=== PATIENT | female | born 1935 | race Caucasian/White ===

== ENCOUNTER 2018-03-03 21:18 | Inpatient (IN) | payer MEDICARE, OTHER ==
--- NOTE | 2018-03-03 22:39 | ED ---
Lower Extremity Injury HPI - General Chief Complaint: Extremity Injury, Lower Stated Complaint: Leg Injury Time Seen by Provider: 03/03/18 21:23 Source: patient, EMS Mode of arrival: EMS Limitations: no limitations - History of Present Illness Initial Comments: Years old female transferred here from [facility], she has a history of dementia and lives in a intermediate, according to the family she fell in intermediate called the family this morning that she is having a hard time bearing weight local x-ray was done, it showed hip fracture then she was transferred to [facility] and [facility] they didn't quite extensive workup head CT cervical spine CT hip x-rays labs troponin EKG also sings were unremarkable except the left hip fracture, patient had the morphine she was hard to hard to arouse but she did she did wake up confused pleasant then she fell asleep no review of system is available from the patient - Related Data Home Medications Medication Instructions Recorded Confirmed ALPRAZolam [Xanax] 0.5 mg PO TID@0900,1300,209903/03/18 03/03/18 Acetaminophen [Tylenol Extra 500 mg PO TID@0900,1300,209903/03/18 03/03/18 Strength] Aspirin [Adult Low Dose Aspirin EC] 81 mg PO DAILY@89903/03/18 03/03/18 Atorvastatin [Lipitor] 40 mg PO HS@209903/03/18 03/03/18 Bisacodyl [Dulcolax] 10 mg PO DAILY PRN 03/03/18 03/03/18 Bisacodyl [Dulcolax] 10 mg RECTAL DAILY PRN 03/03/18 03/03/18 Lisinopril [Prinivil] 10 mg PO DAILY@0900 03/03/18 03/03/18 Magnesium Hydroxide [Milk of 2,400 mg PO DAILY PRN 03/03/18 03/03/18 Magnesia] Magnesium Hydroxide [Milk of 400 mg PO HS@209903/03/18 03/03/18 Magnesia] Meclizine [Antivert] 12.5 mg PO Q8HR PRN 03/03/18 03/03/18 Mirtazapine 7.5 mg PO HS@209903/03/18 03/03/18 Sennosides-Docusate Sodium 2 tab PO BID@0900,2100 03/03/18 03/03/18 [Senokot-S] Sertraline [Zoloft] 50 mg PO DAILY@0900 03/03/18 03/03/18 Allergies Allergy/AdvReac Type Severity Reaction Status Date / Time Sulfa (Sulfonamide Allergy Rash/Hives Verified 03/03/18 21:37 Antibiotics) Review of Systems ROS Statement: Those systems with pertinent positive or pertinent negative responses have been documented in the HPI. ROS Other: All systems not noted in ROS Statement are negative. Past Medical History History of Any Multi-Drug Resistant Organisms: None Reported Past Psychological History: No Psychological Hx Reported Smoking Status: Former smoker Past Alcohol Use History: None Reported Past Drug Use History: None Reported General Exam - General Exam Comments Initial Comments: General: The patient is asleep on arrival to the ER, she had the morphine prior to her arrival in our ER, she looks thin and pale and dehydrated Skin: Skin is warm and dry and no rashes or lesions are noted. Eye: Pupils are equal, round and reactive to light, extra-ocular movements are intact; there is normal conjunctiva bilaterally. Ears, nose, mouth and throat: mucus membranes are dry, Neck: No obvious injury noticed to the neck. Cardiovascular: There is a regular rate and rhythm. No murmur, rub or gallop is appreciated. Respiratory: To auscultation bilateral, no wheezing no rhonchi no distress respiratory purvis noticed Gastrointestinal: Soft, non-distended, non-tender abdomen without masses or organomegaly noted. There is no rebound or guarding present. Bowel sounds are unremarkable. Back: There is no tenderness to palpation in the midline. There is no obvious deformity. Musculoskeletal: Normal pulses on the left lower extremity are palpable palpable she is able to wiggle her toes. Neurological: CN II-XII intact, Cranial nerves III through XII are intact. There are no obvious motor or sensory deficits. Coordination appears grossly intact. Speech is normal. Psychiatric: Cooperative, pleasant, confused Limitations: no limitations Course Vital Signs 03/03/18 03/03/18 21:19 23:34 Temperature 97.5 F L 97.1 F L Pulse Rate 92 72 Respiratory 16 16 Rate Blood Pressure 112/71 150/72 O2 Sat by Pulse 95 98 Oximetry Her labs were reviewed from [facility] his metabolic panel, troponin, EKG , head CT, urinalysis, CBC was unremarkable and he also did the cervical spine CT which is unremarkable left hip fracture was confirmed with a chest x-ray she be admitted to Dr. Lois De Leon, neck covering Dr. Lois De Leon he returned he paged and he agreed with that we'll consult Dr. Gonzales medical coverage him a he spoke to Dr. Gonzales and gave him the information about the patient Disposition Clinical Impression: Hip fracture, left Disposition: ADMITTED IP TO THIS HOSP Condition: Good Referrals: Isaías Tenorio MD [Primary Care Provider] - 1-2 days
[2018-03-03] MEDS ORDERED: NALOXONE 0.4 MG/ML 1 ML VIAL IV PRN (23:44)
[2018-03-03] MEDS ORDERED: ONDANSETRON 4 MG/2 ML VIAL IVP PRN (23:52)
[2018-03-03] MEDS ORDERED: MORPHINE SULFATE 4 MG/ML SYRINGE IV PRN (23:52)
[2018-03-03] MEDS ORDERED: MAGNESIUM HYDROXIDE 2,400 MG/10 ML CUP PO PRN (23:56)
[2018-03-04 00:27] LABS: Glucose,Whole Blood 135 mg/dL (75-99)
[2018-03-04] MEDS ORDERED: SODIUM CHLORIDE 0.9% 1,000 ML IV SCH (00:30)
[2018-03-04 00:41] LABS: Basophils % (A) 0 %; Eosinophils % (A) 0 %; HCT 38.2 % (34.0-46.0); HGB 11.9 gm/dL (11.4-16.0); Hypochromasia Slight; Lymphocytes # (A) 1.1 k/uL (1.0-4.8); Lymphocytes % (A) 6 %; MCH 30.4 pg (25.0-35.0); MCHC 31.3 g/dL (31.0-37.0); MCV 97.1 fL (80.0-100.0); Mean Platelet Volume 8.2; Monocytes # (A) 1.2 k/uL (0-1.0); Monocytes % (A) 6 %; Neutrophils # (A) 17.5 k/uL (1.3-7.7); Neutrophils % (A) 88 %; Platelet Count 258 k/uL (150-450); RBC 3.93 m/uL (3.80-5.40); RDW 14.9 % (11.5-15.5); WBC 19.9 k/uL (3.8-10.6)
[2018-03-04 00:49] LABS: ALT 33 U/L (9-52); AST 29 U/L (14-36); Albumin 4.2 g/dL (3.5-5.0); Alkaline Phosphatase 77 U/L (38-126); Anion Gap 15 mmol/L; Blood Urea Nitrogen 15 mg/dL (7-17); Calcium 9.6 mg/dL (8.4-10.2); Carbon Dioxide 26 mmol/L (22-30); Chloride 102 mmol/L (98-107); Glucose 138 mg/dL (74-99); INR 1.1 (<1.2); Potassium 4.6 mmol/L (3.5-5.1); Prothrombin Time 10.7 sec (9.0-12.0); Sodium 143 mmol/L (137-145); Total Bilirubin 0.4 mg/dL (0.2-1.3); Total Protein 6.8 g/dL (6.3-8.2)
--- NOTE | 2018-03-04 00:54 | P.CONS ---
History of Present Illness - Reason for Consult Consult date: 03/04/18 pre op clearance Requesting physician: Matias Diaz - Chief Complaint fall at [place] - History of Present Illness 83-year-old female skilled nursing resident due to advanced dementia currently unable to provide any meaningful history due to being heavily sedated with morphine. History was obtained by reviewing medical records and discussing with the ER attending. Family was not available for further information, I attempted phone #[phone] supposed to be her son Ed, but I had no answer. Patient was transferred from [facility] after being diagnosed with left intertrochanteric femur fracture. She is residing at the skilled nursing due to advanced dementia where she sustained a fall family was contacted and she was taken to the hospital. Initial workup including CT of the head showing chronic white matter ischemic changes, CT of the spine she saw showing no acute changes but chronic degenerative changes, and further x-rays revealed left intertrochanteric femur fracture. Her labs were unremarkable except for hemoglobin of 11.1 and elevated white count at 12 and elevated blood sugar at 133. Her EKG from the other facility showed normal sinus rhythm with nonspecific lateral ST changes. Patient is not communicating at this point and unable to provide any further history Medicine was consult did for preop medical clearance Advanced care directives could not be obtained at this time due to patient unable to express wishes however there is documentation in her chart sent with her from skilled nursing indicating that she is a full code Review of Systems Unable to obtain any meaningful review of systems at this time due to patient mental status being heavily sedated under effects of morphine this as patient has history of advanced dementia Past Medical History Past Medical History: Unable to Obtain, COPD, CVA/TIA, Dementia, Hyperlipidemia , Hypertension History of Any Multi-Drug Resistant Organisms: Unobtainable Past Surgical History: Unable to Obtain Past Anesthesia/Blood Transfusion Reactions: Unable to Obtain Past Psychological History: Unable to Obtain, Depression Smoking Status: Former smoker Past Alcohol Use History: Unable to Obtain Past Drug Use History: Unable to Obtain Additional History: Unable to obtain family history due to patient mental status Medications and Allergies Home Medications and Allergies Comment(s): I verified personally the list that was sent from the skilled nursing otherwise I was not able to verify that list with her family or the patient Home Medications Medication Instructions Recorded Confirmed Type ALPRAZolam [Xanax] 0.5 mg PO TID@0900,1300,2100 03/03/18 05/24/18 History Acetaminophen [Tylenol Extra 500 mg PO TID@0900,1300,209903/03/18 03/03/18 History Strength] Aspirin [Adult Low Dose Aspirin EC] 81 mg PO DAILY@0903/03/18 03/03/18 History Atorvastatin [Lipitor] 40 mg PO HS@209903/03/18 03/03/18 History Bisacodyl [Dulcolax] 10 mg PO DAILY PRN 03/03/18 03/03/18 History Bisacodyl [Dulcolax] 10 mg RECTAL DAILY PRN 03/03/18 03/03/18 History Lisinopril [Prinivil] 10 mg PO DAILY@89903/03/18 03/03/18 History Magnesium Hydroxide [Milk of 2,400 mg PO DAILY PRN 03/03/18 03/03/18 History Magnesia] Magnesium Hydroxide [Milk of 400 mg PO HS@209903/03/18 03/03/18 History Magnesia] Meclizine [Antivert] 12.5 mg PO Q8HR PRN 03/03/18 03/03/18 History Mirtazapine 7.5 mg PO HS@209903/03/18 03/03/18 History Sennosides-Docusate Sodium 2 tab PO BID@0900,209903/03/18 03/03/18 History [Senokot-S] Sertraline [Zoloft] 50 mg PO DAILY@89903/03/18 03/03/18 History Allergies Allergy/AdvReac Type Severity Reaction Status Date / Time Sulfa (Sulfonamide Allergy Rash/Hives Verified 03/03/18 21:37 Antibiotics) Physical Exam Vitals: Vital Signs Temp Pulse Resp BP Pulse Ox 03/03/18 23:34 97.1 F L 72 16 150/72 98 03/03/18 21:19 97.5 F L 92 16 112/71 95 Intake and Output 03/03/18 03/03/18 03/04/18 14:59 22:59 06:59 Other: Weight 40.823 kg Very limited physical exam was performed due to patient mental status being heavily sedated under the effect of morphine Constitutional: No acute distress, lethargic easily arousable however drifts back to sleep without stimulation Eyes: Anicteric sclerae, moist conjunctiva, Pupils equal round reactive to light ENMT: NC/AT Patient did not open her mouth for further exam of her oropharynx Neck: Supple, FROM, no masses, or JVD No carotid bruits No thyromegaly Lungs: Clear to auscultation Clear to percussion Normal respiratory effort, no accessory muscle use Cardiovascular: Heart regular in rate and rhythm, No murmurs, gallops, or rubs No peripheral edema Abdominal: Soft Nontender, no guarding, rebound or rigidity Abdomen moving with respiration Normoactive bowel sounds No hepatomegaly, No splenomegaly No palpable mass No abdominal wall hernia noted Cullen catheter in place Skin: Normal temperature, tone, texture, turgor No induration No subcutaneous nodules No rash, lesions There is subcutaneous swelling over her left dorsum of the hand seems to be cystic in nature soft and rubbery no skin changes on top does not seem to be tender Extremities: Patient seems to have contractures of her bilateral upper extremities No digital cyanosis No clubbing Pedal pulses intact and symmetrical Radial pulses intact and symmetrical No calf tenderness Psychiatric: Sleepy and lethargic, easily arousable however drifts back to sleep without stimulation, patient did not say a word during my interaction with her even when she had good eye contact with me, nursing staff has not heard her talking at all Neuro patient is not really cooperating with exam she would only move her right lower extremity spontaneously, not following my commands, her bilateral upper extremity seems to be contracted with extension at her elbow and internal levorotated bilateral upper extremities. Could not assess sensation or strength as patient is not cooperating with exam, could not assess cranial nerves, as patient is not cooperating with exam Lymphatics: no palpable cervical or supraclavicular , or inguinal lymph nodes Assessment and Plan Assessment: 82-year-old female skilled nursing resident due to advanced severe dementia, patient unable to provide any meaningful history at this time due to being heavily sedated with morphine. Family was not available for further information. Provided phone number was not answered when attempted. Patient was transferred from [facility] due to acute left intertrochanteric femur fracture sustained after a fall at the skilled nursing. Medicine was consult at for preop medical clearance. I reviewed patient labs from the other facility he seem unremarkable except for mild anemia at 11 and some mild leukocytosis at 12. Her blood sugar was elevated at 133. Her urine was positive for nitrite however patient unable to provide any history to verify whether she has UTI or not. Other reports for her imaging and EKG was reviewed Plan: #Acute left intertrochanteric femur fracture closed, secondary to fall at skilled nursing Unknown of the fall was mechanical or due to syncope Continue with cardiac monitoring Pain control Patient will require DVT prophylaxis however due to plans for taking her to our in the morning currently her pharmacologic anticoagulation on hold, continue with mechanical anticoagulation IV fluid hydration with normal saline Further management per orthopedics #Hypertension slightly elevated Continue with home medication lisinopril #Elevated blood sugar, rule out diabetes Check A1c Continue with insulin sliding scale for before meals at bedtime #Severe advanced dementia Continue with home medications Patient is skilled nursing resident #Debility and poor functional status PT/OT #Mild anemia Continue to monitor Unknown if patient has any source of bleeding at this time #Mild leukocytosis This is possibly reactive Urine tested positive for nitrate However patient unable to provide any history to verify if she has clinical symptoms of UTI #History of depression Continue home medications #History of CVA Continue with atorvastatin Aspirin on hold due to possible surgery in the morning #DVT prophylaxis Currently on mechanical anticoagulation due to anticipated surgery in the morning Consider pharmacologic anticoagulation post surgery per orthopedic recommendations #History of COPD currently compensated DuoNeb's when necessary Follow-up labs We'll reassess in the morning for preop clearance hopefully patient will be more awake or we will be able to contact family We'll review further labs in the morning Patient is full code per the document that was attached to her transfer papers Anticipated discharge after 48 hours possibly back to skilled nursing
[2018-03-04 06:04] LABS: Glucose,Whole Blood 108 mg/dL (75-99)
[2018-03-04] MEDS ORDERED: HYDROcodone/APAP 5-325MG 1 EACH TAB PO PRN (07:51)
--- NOTE | 2018-03-04 08:25 | P.PN ---
Progress Note - Text Progress Note Date: 03/04/18 Hospitalist interval note: Patient seen and examined at bedside. She will and mumbles but does not answer questions intelligently. She says note having pain but grabs her left hip during our conversation. When asked if she is having chest pain or shortness of breath she shrugs her shoulders and in does not know. She was seen by Dr. Gonzales last night. She has a history of a recent stroke in May 2017. They were not able to get ahold of her family last night but I did get ahold of her son at this morning. She has no history of heart disease, she's never had a heart attack, or stent. He doesn't know of any recent chest pain. He states that she's been in the intermediate since May 2017 after structured suffering her stroke. Currently she is wheelchair-bound at baseline and transfers in and out of bed only. He states she has been working with therapy and doing the bite but not independently. This is her second fall in the last month. He states that prior to her stroke she had no known medical history. She has never had any serious surgeries in the past before or recent hospitalizations. She has had dementia which has been progressing rapidly. Today at baseline she is able to recognize her family and answer simple yes no questions appropriately. Vital signs temperature 98.4 pulse 74 respirations 18 blood pressure 110/68 oxygen saturation 100% General: non toxic, mild distress, appears at stated age Derm: warm, dry Head: atraumatic, normocephalic, symmetric Eyes: EOMI, no lid lag, anicteric sclera Mouth: no lip lesion, mucus membranes moist Cardiovascular: S1S2 reg, no murmur, positive posterior tibial pulse bilateral, Lungs: decreased bs b/l, no rhonchi, no rales , no accessory muscle use Abdominal: soft, nontender to palpation, no guarding, no appreciable organomegaly Ext: no gross muscle atrophy, no edema, no contractures, + contracture Neuro: CN II-XI grossly intact, no focal neuro deficits Psych: Awake, oriented to person , appropriate affect For Full Note please see H and P by Dr Gonzales. Surgical risk stratification: EKG reviewed by myself which reveals normal sinus rhythm at a rate of 79, normal axis, AZ interval 118 QRS 90 QTC [address]-T wave changes. Patient has no history of known cardiac disease but has had a recent stroke. She has a functional capacity at baseline appears to have slight flexion contractures of bilateral lower extremities. Her Vieyra risk score is 2.26% of preoperative ND/cardiac arrest. I do not feel that she needs any additional testing prior to surgery. She is at elevated but not prohibitive risk for this non cardiac procedures. I did discuss with her son and that she would be at increased risk of ND, cardiac arrest, severe confusion postoperatively due to her advanced dementia. He understands this, but would want to proceed with surgery if it meant she had a better quality of life and less pain. I did leave a message for Isaías TRIANA to call me back if he has any questions regarding her risk stratification. Marianela Rios, DO
[2018-03-04 09:26] VITALS: BMI 16.5
--- NOTE | 2018-03-04 09:57 | P.HPOR ---
History of Present Illness H&P Date: 03/04/18 Chief Complaint: Left intertrochanteric hip fracture This is an 82-year-old female who was transferred from [facility] to [facility] late last night with regards to a left hip injury. Patient resides in a mcc, and apparently she had a fall yesterday late afternoon or early evening. She was initially transferred to [facility], imaging test done there demonstrated a left intertrochanteric hip fracture. Prior to transfer [facility], I was contacted by the emergency room staff at [facility] and discussed the case. Patient was admitted under our care with internal medicine consult. Internal medicine has already evaluated the patient, and has been cleared for surgery. I was able to evaluate patient's morning at bedside, she is resting comfortably. Review of systems and history of present illness was very hard to obtain. Patient has noted dementia. She is able to answer some questions regarding location of pain and directives of moving the extremity. Patient's son was available today in the hospital to discuss patient's medical history and answer any further questions. She had a stroke back in May 2017 , since then she's been in the mcc. She has resided to wheelchair since then also. She relates very minimally, she does okay with transfers. He states the stroke didn't affect the bilateral lower extremities. Review of Systems Constitutional: Reports as per HPI Past Medical History Past Medical History: Unable to Obtain, COPD, CVA/TIA, Dementia, Hyperlipidemia , Hypertension History of Any Multi-Drug Resistant Organisms: Unobtainable Past Surgical History: Unable to Obtain Past Anesthesia/Blood Transfusion Reactions: Unable to Obtain Smoking Status: Unknown if ever smoked Medications and Allergies Home Medications Medication Instructions Recorded Confirmed Type ALPRAZolam [Xanax] 0.5 mg PO TID@0900,1300,209903/03/18 03/03/18 History Acetaminophen [Tylenol Extra 500 mg PO TID@0900,1300,2100 03/03/18 03/03/18 History Strength] Aspirin [Adult Low Dose Aspirin EC] 81 mg PO DAILY@0900 03/03/18 03/03/18 History Atorvastatin [Lipitor] 40 mg PO HS@209903/03/18 03/03/18 History Bisacodyl [Dulcolax] 10 mg PO DAILY PRN 03/03/18 03/03/18 History Bisacodyl [Dulcolax] 10 mg RECTAL DAILY PRN 03/03/18 03/03/18 History Lisinopril [Prinivil] 10 mg PO DAILY@0900 03/03/18 03/03/18 History Magnesium Hydroxide [Milk of 2,400 mg PO DAILY PRN 03/03/18 03/03/18 History Magnesia] Magnesium Hydroxide [Milk of 400 mg PO HS@209903/03/18 03/03/18 History Magnesia] Meclizine [Antivert] 12.5 mg PO Q8HR PRN 03/03/18 03/03/18 History Mirtazapine 7.5 mg PO HS@209903/03/18 03/03/18 History Sennosides-Docusate Sodium 2 tab PO BID@0900,209903/03/18 03/03/18 History [Senokot-S] Sertraline [Zoloft] 50 mg PO DAILY@0903/03/18 03/03/18 History Allergies Allergy/AdvReac Type Severity Reaction Status Date / Time Sulfa (Sulfonamide Allergy Rash/Hives Verified 03/03/18 21:37 Antibiotics) Physical Examination Left lower extremity: Patient's hip is flexed to about 90, the knee is flexed about 60, slightly contracted There is slight internal rotation of the left leg compared to the right Logroll maneuver reproduces pain of the left groin region, she is unable to straight leg raise She is able to wiggle the toes and minimal difficulty, her dorsal pedis pulses 2 +. Sensory exam to light touch is intact Her calf is soft, no tenderness with palpation Results - Labs Labs: Abnormal Lab Results - Last 24 Hours (Table) 03/04/18 03/04/18 03/04/18 Range/Units 00:23 00:23 00:24 WBC 19.9 H (3.8-10.6) k/uL Neutrophils # 17.5 H (1.3-7.7) k/uL Monocytes # 1.2 H (0-1.0) k/uL Glucose 138 H (74-99) mg/dL POC Glucose (mg/dL) 135 H (75-99) mg/dL 03/04/18 Range/Units 06:01 WBC (3.8-10.6) k/uL Neutrophils # (1.3-7.7) k/uL Monocytes # (0-1.0) k/uL Glucose (74-99) mg/dL POC Glucose (mg/dL) 108 H (75-99) mg/dL H & H 03/04/18 Range/Units 00:23 Hgb 11.9 (11.4-16.0) gm/dL Hct 38.2 (34.0-46.0) % Coagulation 03/04/18 Range/Units 00:23 INR 1.1 (<1.2) Result Diagrams: 03/04/18 00:23 03/04/18 00:23 - Diagnostic results Hip x-ray: report reviewed, image reviewed Assessment and Plan Plan: Imaging: X-rays were reviewed from [facility] on our [facility] system. Images demonstrate a minimally displaced left intertrochanteric hip fracture Assessment: Minimal displaced left intertrochanteric hip fracture Status post standing History dementia history of previous stroke Plan: I was able to discuss the case, this including both physical exam findings and imaging studies might any Dr. Diaz. Our plan is to proceed with surgical intervention, more specifically an open reduction internal fixation of a left intertrochanteric hip fracture. Would like to do the surgery on 03/05/2018. Risks and benefits the procedure were discussed patient in the Center at bedside , this including but not excluding infection, blood loss, neurovascular injury, pain and stiffness, need for subsequent surgery, risk of mortality. Patient's son is in good understanding and would like to proceed with surgery. Medical recommendations Nothing by mouth after midnight Nonweightbearing left lower extremity Pain control, utilize oral medication, try to avoid IV narcotics GI and DVT prophylaxis, likely subcu medication after surgery Plan for discharge back to nursing facility when stable Further recommendations to follow Time with Patient: Less than 30
[2018-03-04] MEDS: SENNOSIDES-DOCUSATE SODIUM 1 EACH TAB PO SCH ×2 (10:05→20:08)
[2018-03-04] MEDS: LISINOPRIL 10 MG TAB PO SCH (10:06)
[2018-03-04] MEDS: ACETAMINOPHEN TAB 500 MG TAB PO SCH ×4 (10:06→23:53)
[2018-03-04] MEDS: ALPRAZolam 0.5 MG TAB PO SCH ×3 (10:07→20:06)
[2018-03-04 11:54] LABS: Glucose,Whole Blood 96 mg/dL (75-99)
[2018-03-04 14:22] LABS: Hemoglobin A1C 5.5 % (4.0-6.0)
[2018-03-04 17:14] LABS: Glucose,Whole Blood 105 mg/dL (75-99)
[2018-03-04 18:52] LABS: Appearance,Urine Cloudy (Clear); Bacteria,Urine Rare /hpf; Bilirubin,Urine Negative (Negative); Blood,Urine Moderate (Negative); Color,Urine Yellow; Glucose,Urine (UA) Negative (Negative); Ketones,Urine Negative (Negative); Leukocyte Esterase,Urine Large (Negative); Mucus,Urine Rare /hpf; Nitrite,Urine Negative (Negative); PH, Urine 5.5 (5.0-8.0); Protein,Urine Trace (Negative); RBC,Urine 37 /hpf (0-5); Specific Gravity,Urine 1.023 (1.001-1.035); Squamous Epithelial Cell,Urine 1 /hpf (0-4); Urobilinogen,Urine <2.0 mg/dL (<2.0); WBC,Urine 58 /hpf (0-5)
[2018-03-04] MEDS: ATORVASTATIN 40 MG TAB PO SCH (20:06)
[2018-03-04] MEDS: MAGNESIUM HYDROXIDE 2,400 MG/10 ML CUP PO SCH (20:07)
[2018-03-04 23:39] LABS: Glucose,Whole Blood 136 mg/dL (75-99)
[2018-03-05 06:28] LABS: Glucose,Whole Blood 93 mg/dL (75-99)
[2018-03-05] MEDS: ACETAMINOPHEN TAB 500 MG TAB PO SCH ×3 (06:41→18:08)
[2018-03-05 07:18] LABS: HCT 32.7 % (34.0-46.0); HGB 10.5 gm/dL (11.4-16.0); MCH 30.8 pg (25.0-35.0); MCV 96.1 fL (80.0-100.0); Mean Platelet Volume 7.7; Platelet Count 231 k/uL (150-450); RBC 3.41 m/uL (3.80-5.40); RDW 14.9 % (11.5-15.5); WBC 8.2 k/uL (3.8-10.6)
[2018-03-05 07:49] LABS: ALT 31 U/L (9-52); AST 25 U/L (14-36); Albumin 3.1 g/dL (3.5-5.0); Alkaline Phosphatase 60 U/L (38-126); Anion Gap 8 mmol/L; Blood Urea Nitrogen 14 mg/dL (7-17); Calcium 8.7 mg/dL (8.4-10.2); Carbon Dioxide 31 mmol/L (22-30); Chloride 103 mmol/L (98-107); Glucose 96 mg/dL (74-99); Magnesium 1.6 mg/dL (1.6-2.3); Phosphorus 2.6 mg/dL (2.5-4.5); Potassium 4.1 mmol/L (3.5-5.1); Sodium 142 mmol/L (137-145); Total Bilirubin 0.4 mg/dL (0.2-1.3); Total Protein 5.5 g/dL (6.3-8.2)
[2018-03-05] MEDS ORDERED: ALBUTEROL NEBULIZED 2.5 MG/3 ML INHALATION PRN (08:39)
--- NOTE | 2018-03-05 09:15 | P.PN ---
Subjective Progress Note Date: 03/05/18 Principal diagnosis: hip fracture Patient is an 83-year-old female with history of prior tobacco abuse, stroke, dementia, dyslipidemia, and hypertension who initially was taken to the ER at [facility] after sustaining a fall at her shelter. She was found to have an intertrochanteric left hip fracture at that point in time and was transferred to our facility. She does have advanced dementia along with significant functional debility she only transfers and out of the wheelchair. Patient seen and examined at bedside. She is anxious about her surgery today. She denies any chest pain or shortness of breath. She denies any nausea or vomiting. She has having some left hip pain. Objective - Vital Signs Vital signs: Vital Signs Temp 99.2 F 03/05/18 08:06 Pulse 74 03/05/18 08:06 Resp 16 03/05/18 08:06 BP 167/84 03/05/18 08:06 Pulse Ox 97 03/05/18 08:06 Intake & Output 03/04/18 03/05/18 03/05/18 18:59 06:59 18:59 Intake Total 357 689 Output Total 200 890 Balance 157 -201 Weight 40.823 kg Intake: Oral 357 689 Output: Urine 200 890 Other: Voiding Method Indwelling Catheter Indwelling Catheter # Voids 1 # Bowel Movements 0 - Exam General: non toxic, I'll distress secondary to pain, appears at stated age Derm: warm, dry Head: atraumatic, normocephalic, symmetric Eyes: EOMI, no lid lag, anicteric sclera Mouth: no lip lesion, mucus membranes moist Cardiovascular: S1S2 reg, no murmur, positive posterior tibial pulse bilateral, Lungs: Decreased breath sounds bilateral bases, no rhonchi, no rales , no accessory muscle use Abdominal: soft, nontender to palpation, no guarding, no appreciable organomegaly Ext: no gross muscle atrophy, no edema, mild flexion contractures of bilateral lower extremity, swelling over the dorsum of the left hand appears to be cystic and rubbery in nature, nontender. Neuro: CN II-XI grossly intact, no focal neuro deficits Psych: Alert, oriented to self and situation, appropriate affect - Labs CBC & Chem 7: 03/05/18 07:01 03/05/18 07:01 Labs: Abnormal Lab Results - Last 24 Hours (Table) 05/25/18 05/25/18 05/25/18 Range/Units 17:13 18:15 23:38 RBC (3.80-5.40) m/uL Hgb (11.4-16.0) gm/dL Hct (34.0-46.0) % Carbon Dioxide (22-30) mmol/L POC Glucose (mg/dL) 105 H 136 H (75-99) mg/dL Total Protein (6.3-8.2) g/dL Albumin (3.5-5.0) g/dL Urine Appearance Cloudy H (Clear) Urine Protein Trace H (Negative) Urine Blood Moderate H (Negative) Ur Leukocyte Esterase Large H (Negative) Urine RBC 37 H (0-5) /hpf Urine WBC 58 H (0-5) /hpf Urine Bacteria Rare H (None) /hpf Urine Mucus Rare H (None) /hpf 03/05/18 03/05/18 Range/Units 07:01 07:01 RBC 3.41 L (3.80-5.40) m/uL Hgb 10.5 L (11.4-16.0) gm/dL Hct 32.7 L (34.0-46.0) % Carbon Dioxide 31 H (22-30) mmol/L POC Glucose (mg/dL) (75-99) mg/dL Total Protein 5.5 L (6.3-8.2) g/dL Albumin 3.1 L (3.5-5.0) g/dL Urine Appearance (Clear) Urine Protein (Negative) Urine Blood (Negative) Ur Leukocyte Esterase (Negative) Urine RBC (0-5) /hpf Urine WBC (0-5) /hpf Urine Bacteria (None) /hpf Urine Mucus (None) /hpf Assessment and Plan Assessment: Left intertrochanteric hip fracture -Plan is for OR today -Lovenox for DVT prophylaxis after surgery -Pain control -PT/OT evaluation Dementia -Discussed with family at length possible delirium on top of this developing after surgery -Continue to provide a safe and supportive environment - resume zoloft - start mirtazapine in AM if no sedation Hypertension, controlled -Continue lisinopril -Follow blood pressures Debility with poor functional status -PT and OT -Fall precautions Anemia -Relatively stable -Repeat CBC in a.m. after surgery History of CVA -Continue with atorvastatin, aspirin on hold for possible surgery will resume in a.m. History of tobacco abuse, family denies history of COPD -As needed albuterol UA not consistent with infection - continue to monitor for fever, increasing WBC, and dysuria Resolved: Elevated blood sugars Leukocytosis DVT prophylaxis: SCDs, Lovenox tomorrow after surgery Discussed with: Patient, family, nursing A total of 25 minutes was spent on the care of this complex patient more than 50 % of the time was spent in counseling and care coordination.
[2018-03-05] MEDS ORDERED: MIDAZOLAM 2 MG/2 ML VIAL ONE (09:32)
[2018-03-05] MEDS ORDERED: ONDANSETRON 4 MG/2 ML VIAL ONE (09:32)
[2018-03-05] MEDS ORDERED: fentaNYL (PF) 50 MCG/ML 2 ML AMP ONE (09:32)
[2018-03-05] MEDS ORDERED: PROPOFOL 10 MG/ML 20 ML VIAL IV ONE (09:32)
[2018-03-05] MEDS ORDERED: KETAMINE 10 MG/ML 20 ML VIAL ONE (09:32)
[2018-03-05] MEDS ORDERED: SUCCINYLCHOLINE CHLORIDE 100 MG/5 ML SYR IV ONE (09:32)
[2018-03-05] MEDS ORDERED: ePHEDrine SULFATE/0.9% NACL/PF 50 MG/5 ML SYRINGE IV ONE (09:32)
[2018-03-05] MEDS ORDERED: LIDOCAINE 1% INJ 10MG/ML (20 ML MDV) ONE (09:32)
[2018-03-05] MEDS ORDERED: SODIUM CHLORIDE 0.9% 50 ML with ceFAZolin 1,000 MG IV ONE ×2 (09:46)
[2018-03-05] MEDS ORDERED: ceFAZolin 1,000 MG in SODIUM CHLORIDE 0.9% 1,000 ML IRRIGATION ONE (10:00)
[2018-03-05] MEDS ORDERED: LACTATED RINGERS 1,000 ML IV ONE (10:00)
[2018-03-05] MEDS ORDERED: MORPHINE SULFATE 4 MG/ML SYRINGE IV PRN ×3 (10:43)
[2018-03-05] MEDS: MORPHINE SULFATE 4 MG/ML SYRINGE IVP ONE ×2 (10:55→11:00)
--- NOTE | 2018-03-05 10:56 | P.OP ---
Date of Procedure: 03/05/18 Preoperative Diagnosis: Intertrochanteric fracture left hip Postoperative Diagnosis: Intertrochanteric fracture left hip Procedure(s) Performed: Open reduction and internal fixation intertrochanteric fracture left hip Implants: David free lock 75 mm compression screw with 135 3-hole sideplate an appropriate length cortical screws 3 Anesthesia: LUCAS Surgeon: Matias Diaz Cashier Host/Hostess #1: Raymond Huffman Estimated Blood Loss (ml): 25 Pathology: none sent Condition: stable Disposition: PACU Indications for Procedure: 82-year-old patient seen with a left hip intertrochanteric fracture with displacement. I recommended open reduction and internal fixation. The procedure, risks, complications and recovery were discussed with patient and family. Consent regarding procedure was obtained. Medical clearance was provided. Operative Findings: See description of procedure Description of Procedure: The patient was taken to the operative suite. The patient received preoperative IV antibiotics. The patient underwent a general anesthetic by the department of anesthesia after failed attempts at a spinal anesthetic. The patient was transferred to the fracture table. The left lower extremity was placed in standard traction with adduction and slight internal rotation. The right lower extremity was placed in a well padded leg saini. The C-arm was brought into the operative field confirming good reduction of the fracture. The left lateral hip area was prepped and draped in the normal sterile fashion. I made an incision beginning just distal to the greater trochanteric site distally approximately 10 cm sharply through skin. Dissection was taken down to the IT band. I incised the IT band and vastus lateralis fascia and bluntly dissected down to the lateral proximal femur. I introduced a guidewire into the head neck complex and confirm adequate positioning on AP and lateral intraoperative imaging. I triple reamed over the guidewire. I introduced my screw into the femoral head achieving good purchase. I connected a 3 hole side plate and secured it to the femur. I drilled 3 holes and introduced appropriate length 4.5 mm cortical screws with good bite and purchase. R compression screw was now introduced to stabilize the plate to the screw. The entire construct now reviewed under AP and lateral intraoperative imaging and noted adequate alignment and good position of the hardware and good stable alignment of the fracture. Spot films were obtained to document that. The wound was irrigated with antibiotic saline solution. The vastus lateralis fascia and IT band were repaired with #1 Vicryl. Subcu used tissues were repaired with 2-0 Vicryl. The skin is proximal skin jelena. Sterile dressings were applied. The patient was then transferred to bed and recovery stable condition. Isaías TRIANA assisted with the procedure.
--- NOTE | 2018-03-05 11:05 | FL ---
EXAMINATION TYPE: FL guidance operating room, XR Hip Limited LT DATE OF EXAM: 03/05/2018 CLINICAL HISTORY: Open reduction internal fixation of the left hip TECHNIQUE: Fluoroscopy. COMPARISON: None. FINDINGS/IMPRESSION: Fluoroscopic guidance was provided during procedure performed by Dr. Diaz. A total of 30 seconds of fluoroscopic time was utilized during the procedure and 2 spot images was acquired during an open reduction internal fixation of a left hip.
[2018-03-05] MEDS: LABETALOL 5 MG/ML VIAL MDV IVP ONE ×2 (11:20→11:35)
[2018-03-05 12:18] LABS: Glucose,Whole Blood 110 mg/dL (75-99)
[2018-03-05] MEDS: ALPRAZolam 0.5 MG TAB PO SCH ×3 (12:37→20:40)
[2018-03-05] MEDS: LISINOPRIL 10 MG TAB PO SCH (12:38)
[2018-03-05] MEDS: SENNOSIDES-DOCUSATE SODIUM 1 EACH TAB PO SCH ×2 (12:38→20:40)
[2018-03-05 16:19] LABS: Basophils % (A) 0 %; Eosinophils # (A) 0.1 k/uL (0-0.7); Eosinophils % (A) 1 %; HCT 29.9 % (34.0-46.0); HGB 9.5 gm/dL (11.4-16.0); Lymphocytes # (A) 1.1 k/uL (1.0-4.8); Lymphocytes % (A) 11 %; MCH 30.9 pg (25.0-35.0); MCHC 31.9 g/dL (31.0-37.0); MCV 96.9 fL (80.0-100.0); Mean Platelet Volume 7.7; Monocytes # (A) 0.6 k/uL (0-1.0); Monocytes % (A) 6 %; Neutrophils # (A) 8.3 k/uL (1.3-7.7); Neutrophils % (A) 81 %; Platelet Count 206 k/uL (150-450); RBC 3.08 m/uL (3.80-5.40); RDW 14.8 % (11.5-15.5); WBC 10.2 k/uL (3.8-10.6)
[2018-03-05] MEDS: ceFAZolin 1,000 MG in DEXTROSE/WATER 1 50ML.BAG IVPB SCH (18:09)
[2018-03-05] MEDS: ATORVASTATIN 40 MG TAB PO SCH (20:40)
[2018-03-05] MEDS: MAGNESIUM HYDROXIDE 2,400 MG/10 ML CUP PO SCH (20:41)
[2018-03-06] MEDS: ceFAZolin 1,000 MG in DEXTROSE/WATER 1 50ML.BAG IVPB SCH ×3 (00:38→17:52)
[2018-03-06] MEDS: ACETAMINOPHEN TAB 500 MG TAB PO SCH ×5 (00:38→21:52)
[2018-03-06] MEDS: LISINOPRIL 10 MG TAB PO SCH (08:20)
[2018-03-06] MEDS: SERTRALINE 50 MG TAB PO SCH (08:20)
[2018-03-06] MEDS: ALPRAZolam 0.5 MG TAB PO SCH ×3 (08:20→21:52)
[2018-03-06] MEDS: SENNOSIDES-DOCUSATE SODIUM 1 EACH TAB PO SCH ×2 (08:20→20:26)
[2018-03-06 08:21] LABS: Anion Gap 6 mmol/L; Blood Urea Nitrogen 10 mg/dL (7-17); Calcium 8.3 mg/dL (8.4-10.2); Carbon Dioxide 31 mmol/L (22-30); Chloride 101 mmol/L (98-107); Glucose 107 mg/dL (74-99); Potassium 3.8 mmol/L (3.5-5.1); Sodium 138 mmol/L (137-145)
[2018-03-06 08:43] LABS: Basophils # (A) 0.1 k/uL (0-0.2); Basophils % (A) 1 %; Eosinophils # (A) 0.2 k/uL (0-0.7); Eosinophils % (A) 3 %; HCT 25.4 % (34.0-46.0); HGB 8.1 gm/dL (11.4-16.0); Lymphocytes # (A) 1.3 k/uL (1.0-4.8); Lymphocytes % (A) 17 %; MCH 31.1 pg (25.0-35.0); MCHC 31.8 g/dL (31.0-37.0); MCV 97.8 fL (80.0-100.0); Mean Platelet Volume 7.9; Monocytes # (A) 0.6 k/uL (0-1.0); Monocytes % (A) 8 %; Neutrophils # (A) 5.5 k/uL (1.3-7.7); Neutrophils % (A) 70 %; Platelet Count 209 k/uL (150-450); RBC 2.59 m/uL (3.80-5.40); WBC 7.8 k/uL (3.8-10.6)
--- NOTE | 2018-03-06 08:55 | P.PN ---
Subjective Progress Note Date: 03/06/18 Principal diagnosis: hip fracture Patient is an 83-year-old female with history of prior tobacco abuse, stroke, dementia, dyslipidemia, and hypertension who initially was taken to the ER at [facility] after sustaining a fall at her skilled nursing. She was found to have an intertrochanteric left hip fracture at that point in time and was transferred to our facility. She does have advanced dementia along with significant functional debility she only transfers and out of the wheelchair. She underwent ORIF left hip on 03/05 and tolerated the procedure well. Patient seen and examined at bedside. She complains of hip pain. She denies and chest pain or shortness of breath. No nausea, no abdominal pain. D/W nursing. Did well overnight no issues with increased confusion. Has been tugging on Cullen cath, had marginal urine output overnight. Objective - Vital Signs Vital signs: Vital Signs Temp 98.9 F 03/06/18 07:34 Pulse 90 03/06/18 07:34 Resp 12 03/06/18 07:34 BP 150/80 03/06/18 07:34 Pulse Ox 97 03/06/18 07:34 Intake & Output 03/05/18 03/06/18 03/06/18 18:59 06:59 18:59 Intake Total 450 250 Output Total 525 320 250 Balance -75 -70 -250 Intake: IV 350 Intake, IV Titration 100 Amount ceFAZolin 1,000 mg In 100 Dextrose/Water 1 50ml.bag @ 100 mls/hr IVPB Q8H [facility] Rx#:[id number] Oral 100 150 Output: Urine 500 320 250 Uretheral (Cullen) 150 Estimated Blood Loss 25 Other: Voiding Method Indwelling Catheter Indwelling Catheter Indwelling Catheter - Exam General: non toxic, mild distress secondary to pain, appears at stated age Derm: warm, dry Head: atraumatic, normocephalic, symmetric Eyes: EOMI, no lid lag, anicteric sclera Mouth: no lip lesion, mucus membranes moist Cardiovascular: S1S2 reg, no murmur, positive posterior tibial pulse bilateral, Lungs: Decreased breath sounds bilateral bases, no rhonchi, no rales , no accessory muscle use Abdominal: soft, nontender to palpation, no guarding, no appreciable organomegaly Ext: no gross muscle atrophy, no edema, swelling over the dorsum of the left hand appears to be cystic and rubbery in nature, nontender. Neuro: CN II-XI grossly intact, no focal neuro deficits Psych: Alert, oriented to self, - Labs CBC & Chem 7: 03/05/18 16:10 03/06/18 07:24 Labs: Abnormal Lab Results - Last 24 Hours (Table) 03/05/18 03/05/18 03/06/18 Range/Units 12:17 16:10 07:24 RBC 3.08 L (3.80-5.40) m/uL Hgb 9.5 L (11.4-16.0) gm/dL Hct 29.9 L (34.0-46.0) % Neutrophils # 8.3 H (1.3-7.7) k/uL Carbon Dioxide 31 H (22-30) mmol/L Creatinine 0.48 L (0.52-1.04) mg/dL Glucose 107 H (74-99) mg/dL POC Glucose (mg/dL) 110 H (75-99) mg/dL Calcium 8.3 L (8.4-10.2) mg/dL Assessment and Plan Assessment: Left intertrochanteric hip fracture s/p ORIF - ortho recs -Pain control -PT/OT evaluation Dementia -Continue to provide a safe and supportive environment - zoloft - resume mirtazapine Hypertension, slightly elevated secondary to pain -Continue lisinopril -Follow blood pressures Debility with poor functional status -PT and OT -Fall precautions Anemia -Relatively stable -Await CBC results after surgery History of CVA -Continue with atorvastatin - ASA in AM History of tobacco abuse, family denies history of COPD -As needed albuterol Resolved: Elevated blood sugars Leukocytosis DVT prophylaxis: SCDs, Lovenox tomorrow after surgery Discussed with: Patient, nursing A total of 25 minutes was spent on the care of this complex patient more than 50 % of the time was spent in counseling and care coordination.
[2018-03-06] MEDS: ENOXAPARIN 40 MG/0.4 ML SYRINGE SQ SCH (09:44)
--- NOTE | 2018-03-06 12:40 | P.PN ---
Subjective Progress Note Date: 03/06/18 Principal diagnosis: Status post ORIF left intertrochanteric hip fracture Patient is examined today, she is resting comfortably in her hospital bed. Her confusion is baseline at this time. According to nursing, no acute changes in her pain. Objective - Vital Signs Vital signs: Vital Signs Temp 98.9 F 03/06/18 07:34 Pulse 90 03/06/18 07:34 Resp 12 03/06/18 07:34 BP 150/80 03/06/18 07:34 Pulse Ox 97 03/06/18 07:34 Intake & Output 03/05/18 03/06/18 03/06/18 18:59 06:59 18:59 Intake Total 450 250 Output Total 525 320 250 Balance -75 -70 -250 Intake: IV 350 Intake, IV Titration 100 Amount ceFAZolin 1,000 mg In 100 Dextrose/Water 1 50ml.bag @ 100 mls/hr IVPB Q8H [facility] Rx#:[id number] Oral 100 150 Output: Urine 500 320 250 Uretheral (Cullen) 150 Estimated Blood Loss 25 Other: Voiding Method Indwelling Catheter Indwelling Catheter Indwelling Catheter - Exam Left lower extremity: Incision is clean, dry, and intact. [place] are in good position There is minimal soft tissue swelling and ecchymosis surrounding the medial and lateral aspects of the incision. Calf is soft, no tenderness with palpation. Plantar flexion, dorsiflexion, EHL, FHL are intact. Sensory exam to light touch throughout the extremity is intact, dorsal pedis pulses 2+. - Labs CBC & Chem 7: 03/06/18 07:24 03/06/18 07:24 Labs: Abnormal Lab Results - Last 24 Hours (Table) 03/05/18 03/06/18 03/06/18 Range/Units 16:10 07:24 07:24 RBC 3.08 L 2.59 L (3.80-5.40) m/uL Hgb 9.5 L 8.1 L (11.4-16.0) gm/dL Hct 29.9 L 25.4 L (34.0-46.0) % Neutrophils # 8.3 H (1.3-7.7) k/uL Carbon Dioxide 31 H (22-30) mmol/L Creatinine 0.48 L (0.52-1.04) mg/dL Glucose 107 H (74-99) mg/dL Calcium 8.3 L (8.4-10.2) mg/dL Assessment and Plan Plan: Assessment: Postoperative day 1 status post ORIF left intertrochanteric hip fracture Plan: Pain control, continue Xarelto low-dose oral medication Nonweightbearing left lower extremity GI and DVT prophylaxis, continue current medical regimen Medical recommendations Continue current management, we'll likely transfer back to assisted living home in a few days. Time with Patient: Less than 30
[2018-03-06] MEDS: ATORVASTATIN 40 MG TAB PO SCH (20:27)
[2018-03-06] MEDS: MAGNESIUM HYDROXIDE 2,400 MG/10 ML CUP PO SCH (20:27)
[2018-03-06] MEDS ORDERED: MIRTAZAPINE 15 MG TAB PO SCH (21:00)
[2018-03-07] MEDS: ceFAZolin 1,000 MG in DEXTROSE/WATER 1 50ML.BAG IVPB SCH ×3 (03:20→17:48)
[2018-03-07] MEDS: ACETAMINOPHEN TAB 500 MG TAB PO SCH ×5 (05:59→23:51)
[2018-03-07] MEDS ORDERED: ALPRAZolam 0.5 MG TAB PO PRN ×2 (08:01→10:54)
--- NOTE | 2018-03-07 08:04 | P.PN ---
Subjective Progress Note Date: 03/07/18 Principal diagnosis: hip fracture Patient is an 83-year-old female with history of prior tobacco abuse, stroke, dementia, dyslipidemia, and hypertension who initially was taken to the ER at [facility]. She was found to have an intertrochanteric left hip fracture at that point in time and was transferred to our facility. She does have advanced dementia along with significant functional debility she only transfers and out of the wheelchair. She underwent ORIF left hip on 03/05 and tolerated the procedure well. Patient seen and examined at bedside. She is very sleepy and difficult to arouse this morning. She does open her eyes to sternal rub and her head no to be in pain. She immediately falls back asleep. She did receive her first dose of Remeron in the hospital last night and difficulty 7.5 mg dose. D/W nursing. Overnight the patient was extremely sleepy per nursing but had no other acute events. No family present at bedside at this time. Objective - Vital Signs Vital signs: Vital Signs Temp 98.2 F 03/07/18 07:00 Pulse 90 03/07/18 07:00 Resp 18 03/07/18 07:00 BP 148/78 03/07/18 07:00 Pulse Ox 97 03/07/18 07:00 Intake & Output 03/06/18 03/07/18 03/07/18 18:59 06:59 18:59 Intake Total 250 300 Output Total 775 450 Balance -525 -150 Intake: Intake, IV Titration 250 100 Amount Sodium Chloride 0.9% 50 200 ml As IV .STK-MED ONE with ceFAZolin 1,000 mg Rx#:[id number] ceFAZolin 1,000 mg In 50 100 Dextrose/Water 1 50ml.bag @ 100 mls/hr IVPB Q8H [facility] Rx#:[id number] Oral 200 Output: Urine 775 450 Uretheral (Cullen) 300 Other: Voiding Method Indwelling Catheter Indwelling Catheter - Exam General: non toxic, mild distress secondary to pain, appears at stated age Derm: warm, dry Head: atraumatic, normocephalic, symmetric Eyes: EOMI, no lid lag, anicteric sclera Mouth: no lip lesion, mucus membranes moist Cardiovascular: S1S2 reg, no murmur, positive posterior tibial pulse bilateral, Lungs: Decreased breath sounds bilateral bases, no rhonchi, no rales , no accessory muscle use Abdominal: soft, nontender to palpation, no guarding, no appreciable organomegaly Ext: no gross muscle atrophy, no edema, swelling over the dorsum of the left hand appears to be cystic and rubbery in nature, nontender. Neuro: CN II-XI grossly intact, no focal neuro deficits Psych: lethargic - Labs CBC & Chem 7: 03/06/18 07:24 03/06/18 07:24 Labs: Abnormal Lab Results - Last 24 Hours (Table) 03/06/18 03/06/18 Range/Units 07:24 07:24 RBC 2.59 L (3.80-5.40) m/uL Hgb 8.1 L (11.4-16.0) gm/dL Hct 25.4 L (34.0-46.0) % Carbon Dioxide 31 H (22-30) mmol/L Creatinine 0.48 L (0.52-1.04) mg/dL Glucose 107 H (74-99) mg/dL Calcium 8.3 L (8.4-10.2) mg/dL Assessment and Plan Assessment: Left intertrochanteric hip fracture s/p ORIF - ortho recs -Pain control -PT/OT evaluation Acute blood loss anemia - start oral iron X 30 days -Relatively stable -Await CBC results after surgery Dementia -Continue to provide a safe and supportive environment - zoloft - decrease remeron dose and change xanax to prn secondary to lethargy Hypertension, slightly elevated secondary to pain -Continue lisinopril -Follow blood pressures Debility with poor functional status -PT and OT -Fall precautions History of CVA -Continue with atorvastatin - ASA on hold with decreasing HgB and recent Sx History of tobacco abuse, family denies history of COPD -As needed albuterol Resolved: Elevated blood sugars Leukocytosis DVT prophylaxis: SCDs, Lovenox tomorrow after surgery Discussed with: Patient, nursing A total of 25 minutes was spent on the care of this complex patient more than 50 % of the time was spent in counseling and care coordination.
[2018-03-07] MEDS: LISINOPRIL 10 MG TAB PO SCH (09:12)
[2018-03-07] MEDS: ENOXAPARIN 40 MG/0.4 ML SYRINGE SQ SCH (09:12)
[2018-03-07] MEDS: SERTRALINE 50 MG TAB PO SCH (09:12)
[2018-03-07] MEDS: SENNOSIDES-DOCUSATE SODIUM 1 EACH TAB PO SCH ×2 (09:15→21:42)
--- NOTE | 2018-03-07 09:47 | P.PN ---
Subjective Progress Note Date: 03/07/18 Principal diagnosis: Status post ORIF left intertrochanteric hip fracture Patient is examined today, she is resting comfortably in her hospital bed. Her confusion is baseline at this time. According to nursing, no acute changes in her pain. Objective - Vital Signs Vital signs: Vital Signs Temp 98.2 F 03/07/18 07:00 Pulse 90 03/07/18 07:00 Resp 18 03/07/18 09:20 BP 148/78 03/07/18 07:00 Pulse Ox 97 03/07/18 07:00 Intake & Output 03/06/18 03/07/18 03/07/18 18:59 06:59 18:59 Intake Total 250 300 0 Output Total 775 450 Balance -525 -150 0 Intake: Intake, IV Titration 250 100 Amount Sodium Chloride 0.9% 50 200 ml As IV .STK-MED ONE with ceFAZolin 1,000 mg Rx#:[id number] ceFAZolin 1,000 mg In 50 100 Dextrose/Water 1 50ml.bag @ 100 mls/hr IVPB Q8H [facility] Rx#:[id number] Oral 200 0 Output: Urine 775 450 Uretheral (Cullen) 300 Other: Voiding Method Indwelling Catheter Indwelling Catheter Indwelling Catheter - Exam Left lower extremity: Incision is clean, dry, and intact. [place] are in good position There is minimal soft tissue swelling and ecchymosis surrounding the medial and lateral aspects of the incision. Calf is soft, no tenderness with palpation. Plantar flexion, dorsiflexion, EHL, FHL are intact. Sensory exam to light touch throughout the extremity is intact, dorsal pedis pulses 2+. - Labs CBC & Chem 7: 03/06/18 07:24 03/06/18 07:24 Assessment and Plan Plan: Assessment: Postoperative day #2 status post ORIF left intertrochanteric hip fracture Plan: Pain control, low-dose oral medication Nonweightbearing left lower extremity GI and DVT prophylaxis, continue current medical regimen Medical recommendations Continue current management, plan for transfer back to alf tomorrow Time with Patient: Less than 30
[2018-03-07 10:33] LABS: Basophils % (A) 1 %; Eosinophils # (A) 0.3 k/uL (0-0.7); Eosinophils % (A) 4 %; HCT 27.4 % (34.0-46.0); HGB 8.4 gm/dL (11.4-16.0); Lymphocytes # (A) 1.1 k/uL (1.0-4.8); Lymphocytes % (A) 13 %; MCH 29.9 pg (25.0-35.0); MCHC 30.7 g/dL (31.0-37.0); MCV 97.5 fL (80.0-100.0); Mean Platelet Volume 7.6; Monocytes # (A) 0.6 k/uL (0-1.0); Monocytes % (A) 7 %; Neutrophils # (A) 6.3 k/uL (1.3-7.7); Neutrophils % (A) 74 %; Platelet Count 257 k/uL (150-450); RBC 2.81 m/uL (3.80-5.40); RDW 14.8 % (11.5-15.5); WBC 8.5 k/uL (3.8-10.6)
[2018-03-07 14:24] LABS: Anion Gap 8 mmol/L; Blood Urea Nitrogen 8 mg/dL (7-17); Calcium 8.3 mg/dL (8.4-10.2); Carbon Dioxide 31 mmol/L (22-30); Chloride 99 mmol/L (98-107); Glucose 117 mg/dL (74-99); Potassium 3.6 mmol/L (3.5-5.1); Sodium 138 mmol/L (137-145)
[2018-03-07] MEDS: FERROUS SULFATE 325 MG TAB PO SCH (17:46)
[2018-03-07] MEDS ORDERED: MIRTAZAPINE 15 MG TAB PO SCH (21:00)
[2018-03-07] MEDS: ATORVASTATIN 40 MG TAB PO SCH (21:39)
[2018-03-07] MEDS: MAGNESIUM HYDROXIDE 2,400 MG/10 ML CUP PO SCH (21:39)
[2018-03-08] MEDS: ceFAZolin 1,000 MG in DEXTROSE/WATER 1 50ML.BAG IVPB SCH ×2 (02:23→09:18)
[2018-03-08 04:47] VITALS: RESP 16
[2018-03-08] MEDS: ACETAMINOPHEN TAB 500 MG TAB PO SCH ×2 (05:51→13:11)
[2018-03-08 07:06] VITALS: BP 145/76; PULSE 75; TEMP 97.8
[2018-03-08] MEDS: FERROUS SULFATE 325 MG TAB PO SCH (08:19)
[2018-03-08] MEDS: SENNOSIDES-DOCUSATE SODIUM 1 EACH TAB PO SCH (08:19)
[2018-03-08] MEDS: SERTRALINE 50 MG TAB PO SCH (08:19)
[2018-03-08] MEDS: ENOXAPARIN 40 MG/0.4 ML SYRINGE SQ SCH (08:19)
[2018-03-08] MEDS: LISINOPRIL 10 MG TAB PO SCH (08:19)
--- NOTE | 2018-03-08 11:30 | P.PN ---
Subjective Progress Note Date: 03/08/18 Principal diagnosis: Status post ORIF left intertrochanteric hip fracture Patient is examined today, she is resting comfortably in her hospital bed. Her confusion is baseline at this time. According to nursing, no acute changes in her pain. Objective - Vital Signs Vital signs: Vital Signs Temp 97.8 F 03/08/18 06:57 Pulse 75 03/08/18 06:57 Resp 16 03/08/18 06:57 BP 145/76 03/08/18 06:57 Pulse Ox 98 03/08/18 06:57 Intake & Output 03/07/18 03/08/18 03/08/18 18:59 06:59 18:59 Intake Total 110 410 Output Total 500 350 250 Balance -390 60 -250 Weight 40.823 kg Intake: IV 50 100 ceFAZolin 1,000 mg In 50 100 Dextrose/Water 1 50ml.bag @ 100 mls/hr IVPB Q8H [facility] Rx#:[id number] Intake, IV Titration 310 Amount Sodium Chloride 0.9% 1, 160 000 ml @ 60 mls/hr IV . [id number] [facility] Rx#:[id number] ceFAZolin 1,000 mg In 150 Dextrose/Water 1 50ml.bag @ 100 mls/hr IVPB Q8H [facility] Rx#:[id number] Oral 60 Output: Urine 500 350 250 Uretheral (Cullen) 250 Other: Voiding Method Indwelling Catheter Indwelling Catheter - Exam Left lower extremity: Incision is clean, dry, and intact. [place] are in good position There is minimal soft tissue swelling and ecchymosis surrounding the medial and lateral aspects of the incision. Calf is soft, no tenderness with palpation. Plantar flexion, dorsiflexion, EHL, FHL are intact. Sensory exam to light touch throughout the extremity is intact, dorsal pedis pulses 2+. - Labs CBC & Chem 7: 03/07/18 10:15 03/07/18 10:15 Labs: Abnormal Lab Results - Last 24 Hours (Table) 03/07/18 Range/Units 10:15 Carbon Dioxide 31 H (22-30) mmol/L Creatinine 0.43 L (0.52-1.04) mg/dL Glucose 117 H (74-99) mg/dL Calcium 8.3 L (8.4-10.2) mg/dL Assessment and Plan Plan: Assessment: Postoperative day #3 status post ORIF left intertrochanteric hip fracture Plan: Pain control, low-dose oral medication Nonweightbearing left lower extremity GI and DVT prophylaxis, continue current medical regimen Medical recommendations Continue current management Plan for discharge back to rehab today Time with Patient: Less than 30
--- NOTE | 2018-03-08 11:34 | P.DS ---
Providers Date of admission: 03/03/18 23:45 Expected date of discharge: 03/08/18 Attending physician: Matias Diaz Consults: 03/03/18 23:44 Consult Physician Stat Consulting Provider: Leigha Gonzales Consult Reason/Comments: Medical clearance Do you want consulting provider notified?: Yes Primary care physician: Isaías Miriam Hospital Course: Date of admission: 03/03/2018 Date of discharge: 03/08/2018 Admission diagnosis: Left intertrochanteric hip fracture Discharge diagnosis: Status post ORIF left intertrochanteric hip fracture Attending physician: Dr. Diaz Surgical procedures: Open reduction internal fixation left intertrochanteric hip fracture Brief history: Patient is a 82-year-old female who was transferred to [facility] from [facility] with regards to left hip injury. Apparently the patient had a fall at her custodial, upon arrival to [facility] imaging studies demonstrated a left intertrochanteric hip fracture. She was then transferred to [facility] for further management. I was contacted by the emergency room staff to [facility] prior to her transfer, we did accept the transfer in the admission. Internal medicine was consulted for clearance and medical management. It was determined the patient will need surgical intervention, more specifically an open reduction internal fixation procedure involving the left hip. She was scheduled for this on 2017. Hospital course: Details of patient's surgery can be found in operative report. Patient tolerated the procedure well and was subsequently transported to orthopedic floor. Patient's orthopeidc and medical care was provided daily. Patient had daily laboratory tests performed for evaluation of overall blood counts. Patient was treated with Lovenox for their postoperative DVT prophylaxis during their inpatient stay. Patient was noted to have a relatively uneventful postoperative course. Patient reported satisfactory pain control with oral pain medications by postoperative day 0. Patient showed satisfactory progress with physical therapy. Patient moved steadily through the program and had no difficulty meeting the goals by postoperative day 3. Given patient's otherwise satisfactory course and having met physical therapy goals, plan is to discharge patient custodial on postoperative day 3. Discharge condition/disposition: Patient will be discharged to custodial in stable condition. Discharge medications: Instructions are given on resumption of patient's normal daily medications per primary care recommendation, in addition patient will be prescribed [place] 5 mg/325 mg, Lovenox 40 mg. Discharge instructions: 1. Wound care and infection precautions, keep incision dry and covered while showering, no lotions, creams, moisturizers. No soaking, tubs, pools, hottubs. Do not scrub over the incision. 2. Nonweightbearing left lower extremity 3. Ice and elevate when necessary. Do not exceed 20 minutes per hour with ice pack. 4. Utilize compression sleeve until seen at first follow up appointment. 5. Visiting nursing care. 6. Home physical therapy. 7. Pain meds and anticoagulants per prescription. 8. Pain medication has potential to cause constipation. Increase oral fluid and fiber intake. Contact primary care provider if you have not had a bowel movement within 48 hours after discharge 9. No anti-inflammatory medication until discussed at first post operative visit, this including Motrin, Aleve, Mobic, Diclofenac. 10. Follow up in office at 2 weeks postop with Isaías Huffman PA-C 11. Follow up with your primary care doctor 7-10 days after discharge. 12. Contact [facility] with any questions, . Procedures: Open reduction internal fixation left intertrochanteric hip fracture Patient Condition at Discharge: Stable Plan - Discharge Summary Discharge Rx Participant: No New Discharge Prescriptions: New Hydrocodone/Acetaminophen [[place] 5-325] 1 each PO Q6HR PRN #30 tab PRN Reason: Pain Enoxaparin [Lovenox] 40 mg SQ DAILY #28 syringe No Action Bisacodyl [Dulcolax] 10 mg PO DAILY PRN PRN Reason: Constipation Bisacodyl [Dulcolax] 10 mg RECTAL DAILY PRN PRN Reason: Constipation Meclizine [Antivert] 12.5 mg PO Q8HR PRN PRN Reason: Vertigo Magnesium Hydroxide [Milk of Magnesia] 2,400 mg PO DAILY PRN PRN Reason: Constipation Acetaminophen [Tylenol Extra Strength] 500 mg PO TID@0900,1300,2100 ALPRAZolam [Xanax] 0.5 mg PO TID@0900,1300,2100 Sertraline [Zoloft] 50 mg PO DAILY@0900 Sennosides-Docusate Sodium [Senokot-S] 2 tab PO BID@0900,2100 Mirtazapine 7.5 mg PO HS@2100 Magnesium Hydroxide [Milk of Magnesia] 400 mg PO HS@2100 Lisinopril [Prinivil] 10 mg PO DAILY@0900 Atorvastatin [Lipitor] 40 mg PO HS@2100 Aspirin [Adult Low Dose Aspirin EC] 81 mg PO DAILY@0900 Discharge Medication List ALPRAZolam [Xanax] 0.5 mg PO TID@0900,1300,209903/03/18 [History] Acetaminophen [Tylenol Extra Strength] 500 mg PO TID@0900,1300,209903/03/18 [ History] Aspirin [Adult Low Dose Aspirin EC] 81 mg PO DAILY@89903/03/18 [History] Atorvastatin [Lipitor] 40 mg PO HS@209903/03/18 [History] Bisacodyl [Dulcolax] 10 mg PO DAILY PRN 03/03/18 [History] Bisacodyl [Dulcolax] 10 mg RECTAL DAILY PRN 03/03/18 [History] Lisinopril [Prinivil] 10 mg PO DAILY@0903/03/18 [History] Magnesium Hydroxide [Milk of Magnesia] 2,400 mg PO DAILY PRN 03/03/18 [History] Magnesium Hydroxide [Milk of Magnesia] 400 mg PO HS@209903/03/18 [History] Meclizine [Antivert] 12.5 mg PO Q8HR PRN 03/03/18 [History] Mirtazapine 7.5 mg PO HS@209903/03/18 [History] Sennosides-Docusate Sodium [Senokot-S] 2 tab PO BID@0900,209903/03/18 [History] Sertraline [Zoloft] 50 mg PO DAILY@89903/03/18 [History] Enoxaparin [Lovenox] 40 mg SQ DAILY #28 syringe 03/08/18 [Rx] Hydrocodone/Acetaminophen [[place] 5-325] 1 each PO Q6HR PRN #30 tab 03/08/18 [Rx] Follow up Appointment(s)/Referral(s): Isaías Tenorio MD [Primary Care Provider] - 1-2 days Raymond Huffman PAC [[facility] [employer] [employer]] - 2 Weeks Activity/Diet/Wound Care/Special Instructions: Discharge instructions: 1. Resume home medications after discharge 2. Nonweightbearing left lower extremity 3. Ice and elevate the leg 4. Follow-up at [facility] in 2 weeks Discharge Disposition: TRANSFER TO SNF/ECF
--- NOTE | 2018-03-08 11:35 | P.PN ---
Subjective Progress Note Date: 03/08/18 Principal diagnosis: hip fracture Patient is an 83-year-old female with history of prior tobacco abuse, stroke, dementia, dyslipidemia, and hypertension who initially was taken to the ER at [facility] after sustaining a fall at her detention. She was found to have an intertrochanteric left hip fracture at that point in time and was transferred to our facility. She does have advanced dementia along with significant functional debility she only transfers and out of the wheelchair. She underwent ORIF left hip on 03/05 and tolerated the procedure well. She did have minimal anticipated blood loss anemia. Patient seen and examined at bedside. Sleeping easy to arouse. No chest pain, no shortness of breath, no nausea. D/W nursing no acute events overnight. Objective - Vital Signs Vital signs: Vital Signs Temp 97.8 F 03/08/18 06:57 Pulse 75 03/08/18 06:57 Resp 16 03/08/18 06:57 BP 145/76 03/08/18 06:57 Pulse Ox 98 03/08/18 06:57 Intake & Output 03/07/18 03/08/18 03/08/18 18:59 06:59 18:59 Intake Total 110 410 Output Total 500 350 250 Balance -390 60 -250 Weight 40.823 kg Intake: IV 50 100 ceFAZolin 1,000 mg In 50 100 Dextrose/Water 1 50ml.bag @ 100 mls/hr IVPB Q8H [facility] Rx#:[id number] Intake, IV Titration 310 Amount Sodium Chloride 0.9% 1, 160 000 ml @ 60 mls/hr IV . [id number] [facility] Rx#:[id number] ceFAZolin 1,000 mg In 150 Dextrose/Water 1 50ml.bag @ 100 mls/hr IVPB Q8H [facility] Rx#:[id number] Oral 60 Output: Urine 500 350 250 Uretheral (Cullen) 250 Other: Voiding Method Indwelling Catheter Indwelling Catheter - Exam General: non toxic, no distress secondary to pain, appears at stated age Derm: warm, dry Head: atraumatic, normocephalic, symmetric Eyes: EOMI, no lid lag, anicteric sclera Mouth: no lip lesion, mucus membranes moist Cardiovascular: S1S2 reg, no murmur, positive posterior tibial pulse bilateral, Lungs: Decreased breath sounds bilateral bases, no rhonchi, no rales , no accessory muscle use Abdominal: soft, nontender to palpation, no guarding, no appreciable organomegaly Ext: no gross muscle atrophy, no edema, swelling over the dorsum of the left hand appears to be cystic and rubbery in nature, nontender. Neuro: CN II-XI grossly intact, no focal neuro deficits Psych: awake, alert speaking. - Labs CBC & Chem 7: 03/07/18 10:15 03/07/18 10:15 Labs: Abnormal Lab Results - Last 24 Hours (Table) 03/07/18 Range/Units 10:15 Carbon Dioxide 31 H (22-30) mmol/L Creatinine 0.43 L (0.52-1.04) mg/dL Glucose 117 H (74-99) mg/dL Calcium 8.3 L (8.4-10.2) mg/dL Assessment and Plan Assessment: Left intertrochanteric hip fracture s/p ORIF - ortho recs -Pain control -PT/OT recs Acute blood loss anemia - start oral iron X 30 days -Relatively stable Dementia -Continue to provide a safe and supportive environment - zoloft - keep decreased remeron dose and xanax to prn secondary to lethargy (will add to discharge recs) Hypertension, slightly elevated secondary to pain -Continue lisinopril -Follow blood pressures Debility with poor functional status -PT and OT -Fall precautions History of CVA -Continue with atorvastatin - resume ASA on discharge History of tobacco abuse, family denies history of COPD -As needed albuterol Resolved: Elevated blood sugars Leukocytosis Medically stable for discharge. DVT prophylaxis: Lovenox Discussed with: Patient, nursing A total of 25 minutes was spent on the care of this complex patient more than 50 % of the time was spent in counseling and care coordination.
== END 2018-03-08 15:05 | DRG 481 ==
LOC: EC 21:18 → 3SUR 23:45
PROVIDERS: ADMIT Orthopaedic Surgery; ATTEND Orthopaedic Surgery
PROC: 0QS704Z Reposition Left Upper Femur with Internal Fixation Device, Open Approach (ICD-10-PCS; principal; 2018-03-08)
DX: S72.142A Displaced intertrochanteric fracture of left femur, initial encounter for closed fracture (principal); D62 Acute posthemorrhagic anemia; D72.829 Elevated white blood cell count, unspecified; E78.5 Hyperlipidemia, unspecified; F03.90 Unspecified dementia, unspecified severity, without behavioral disturbance, psychotic disturbance, mood disturbance, and anxiety; I10 Essential (primary) hypertension; J44.9 Chronic obstructive pulmonary disease, unspecified; F32.9 Major depressive disorder, single episode, unspecified; R73.9 Hyperglycemia, unspecified; E86.0 Dehydration; Z79.82 Long term (current) use of aspirin; Z79.899 Other long term (current) drug therapy; Z87.891 Personal history of nicotine dependence; Z86.73 Personal history of transient ischemic attack (TIA), and cerebral infarction without residual deficits; Z99.3 Dependence on wheelchair; Z88.2 Allergy status to sulfonamides; W19.XXXA Unspecified fall, initial encounter; Y93.9 Activity, unspecified; Y92.129 Unspecified place in nursing home as the place of occurrence of the external cause
CPT/HCPCS: 73501; 80048; 80053; 81001; 83036; 83735; 84100; 84484; 85025; 85027; 85610; 93005; 99285